=== PATIENT | male | born 1995 | race Two or more races ===

== ENCOUNTER 2023-03-20 12:03 | Emergency (ER) | payer OTHER ==
[~2023-03-20] VITALS: Ht 162.6 cm; Wt 56.7 kg
== END 2023-03-20 14:50 | disposition home or self-care (01) ==
LOC: ER 12:03
DX: S80.811A Abrasion, right lower leg, initial encounter (principal); X58.XXXA Exposure to other specified factors, initial encounter; Y93.89 Activity, other specified; Y92.89 Other specified places as the place of occurrence of the external cause; Y99.9 Unspecified external cause status